=== PATIENT | female | born 1940 | race Native Hawaiian/Other Pacific Islander ===

== ENCOUNTER 2016-11-03 13:06 | Outpatient (CLI) | payer MEDICARE ==
--- NOTE | 2016-11-03 15:49 | XRay Report ---
AP AND LATERAL LUMBOSACRAL SPINE: History: Left lower extremity weakness No comparison. There is 4 mm anterolisthesis of L4 with respect to L5 which appears to be secondary to degenerative facet arthropathy. No pars defect is detected. The remaining lumbar vertebra in normal alignment. Mild multilevel degenerative disc disease and facet arthropathy are identified at all levels. No fracture or bone lesion. IMPRESSION: Lumbar spondylosis. Grade 1 anterolisthesis of L4 with respect to L5.
== END 2016-11-03 13:07 | disposition home or self-care (01) ==
LOC: SPVIMAG 13:06
PROVIDERS: ATTEND Internal Medicine
DX: M47.896 Other spondylosis, lumbar region (principal); M51.37 Other intervertebral disc degeneration, lumbosacral region; M12.88 Other specific arthropathies, not elsewhere classified, other specified site
CPT/HCPCS: 72100